=== PATIENT | male | born 1985 | race Caucasian/White ===

== ENCOUNTER 2024-01-03 10:44 | Outpatient (CLI) | payer OTHER, SELFPAY | END 2024-01-03 10:45 | disposition home or self-care (01) | PROVIDERS: PCP Physician Assistant Medical; Referring Provider Family Medicine; Visit Provider Physician Assistant Medical | DX: E78.1 Pure hyperglyceridemia (principal); M25.511 Pain in right shoulder; G89.29 Other chronic pain; R41.840 Attention and concentration deficit; Z13.21 Encounter for screening for nutritional disorder; Z13.0 Encounter for screening for diseases of the blood and blood-forming organs and certain disorders involving the immune mechanism; Z13.29 Encounter for screening for other suspected endocrine disorder | CPT/HCPCS: 80053; 80061; 82607; 82728; 84443 ==